=== PATIENT | male | born 2000 | race Caucasian/White ===

== ENCOUNTER 2024-05-27 16:31 | Emergency (ER) | payer SELFPAY ==
--- NOTE | 2024-05-27 16:34 | XRR_ITS ---
PROCEDURE INFORMATION: Exam: XR Right Ankle Exam date and time: 05/27/2024 4:47 PM Age: 24 years old Clinical indication: Injury or trauma; Other: Twisted ankle; Sprain or strain; Right TECHNIQUE: Imaging protocol: Radiologic exam of the right ankle. Views: 3 or more views. COMPARISON: CR XR foot RT min 3V* [id number] 05/27/2024 4:45 PM FINDINGS: Bones/joints: No acute fracture or dislocation. Smooth talar dome. No ankle mortise widening or asymmetry. Soft tissues: Normal. XR/XR ankle RT min 3V* [id number] IMPRESSION: No acute fracture or dislocation identified. Further imaging as clinically warranted if there is persistent symptoms or otherwise suspicion for occult injuries.
--- NOTE | 2024-05-27 16:34 | XRR_ITS ---
PROCEDURE INFORMATION: Exam: XR Right Foot Exam date and time: 05/27/2024 4:45 PM Age: 24 years old Clinical indication: Injury or trauma; Other: Twisted ankle; Sprain or strain; Foot; Right TECHNIQUE: Imaging protocol: Radiologic exam of the right foot. Views: 3 or more views. COMPARISON: No relevant prior studies available. FINDINGS: Bones/joints: No clear-cut acute fracture, dislocation or significant malalignment. Mild contour irregularity of the medial margin of the medial cuneiform is likely due to superimposed shadows. Soft tissues: Normal. XR/XR foot RT min 3V* [id number] IMPRESSION: Mild contour deformity of the medial cuneiform likely due to superimposition of normal anatomic contours. Correlation with point tenderness recommended. Otherwise no evidence of fracture or dislocation
[2024-05-27 16:51] VITALS: BP 146/93; PULSE 76; RESP 16; TEMP 37; O2SAT 97; BMI 36.1
--- NOTE | 2024-05-27 17:36 | ED_ITS ---
HPI - Extremity Problem General: Chief complaint: Extremity Injury, Lower Stated complaint: twisted ankle on right foot Time Seen by Provider: 05/27/24 16:52 Source: patient Mode of arrival: ambulatory Limitations: no limitations History of Present Illness: 24-year-old male states he is at work to day stepped off the curve and twisted his right ankle. He states he been able to ambulate on the ankle but it has been painful he has pain over the lateral portion rates pain a 4 out of 10 it is improved with rest denies any knee pain denies any other injuries Associated symptoms: Deny chest pain, fever(s) or rash Related Data Allergies Allergy/AdvReac Type Severity Reaction Status Date / Time No Known Allergies Allergy Verified 05/27/24 16:56 Review of Systems Const: Denies: fever(s), chills, body aches or change in appetite ENMT: Denies: throat pain or dental pain Card: Denies: chest pain Resp: Denies: dyspnea GI: Denies: abdominal pain, nausea, vomiting or diarrhea Musc: Reports: extremity pain; Denies: neck pain or back pain Skin/Breast: Denies: rash Neuro: Denies: headache(s) Physical Exam Const: COMMON NORMALS: no acute distress, patient oriented x3 and healthy appearing HENMT: COMMON NORMALS: normocephalic and atraumatic HEAD & SCALP: normocephalic and atraumatic Neck/C-Spine: COMMON NORMALS: full ROM and supple Chest: COMMONS NORMALS: normal inspection of the chest Resp: COMMON NORMALS: normal respiratory effort Cardio: COMMON NORMALS: regular rate, regular rhythm and No murmurs present (Cardio) RATE: regular rate RHYTHM: regular rhythm Extremity: COMMON NORMALS: full ROM NARRATIVE EXTREMITY EXAM: Swelling tenderness over right lateral ankle distal pulse sensation intact Neuro: COMMON NORMALS: patient oriented x3, moves all extremities and no focal motor deficits Psych: COMMON NORMALS: mental status grossly normal, Normal thought process present and cooperative THOUGHT PROCESS: Normal thought process present Skin: COMMON NORMALS: no rashes or lesions noted and no wounds GENERAL SKIN EXAM: no rashes or lesions noted Course Vital Signs: Vital signs: Vital Signs Temperature 98.6 F 05/27/24 16:51 Pulse Rate 76 05/27/24 16:51 Respiratory Rate 16 05/27/24 16:51 Blood Pressure 146/93 05/27/24 16:51 Pulse Oximetry 97 05/27/24 16:51 Oxygen Delivery Me thod Room Air 05/27/24 16:51 MDM - Extremity (Nontraumatic) Medical Decision Making Patient presents here with ankle sprain x-ray shows no fractures will Thomas wrap he is weight-bear as tolerated we will get him on crutches we will get him follow-up with podiatry he is return if worsening he understands agrees to plan. Medical Records I reviewed the patient's medical records. Lab Data Radiology Impressions Ankle X-Ray 05/27/24 16:34 IMPRESSION: No acute fracture or dislocation identified. Further imaging as clinically warranted if there is persistent symptoms or otherwise suspicion for occult injuries. Foot X-Ray 05/27/24 16:34 IMPRESSION: Mild contour deformity of the medial cuneiform likely due to superimposition of normal anatomic contours. Correlation with point tenderness recommended. Otherwise no evidence of fracture or dislocation All radiology interpretation(s) finalized by discharge Discharge Plan Discharge Patient Disposition: Home Clinical Impression: Ankle sprain and strain Condition: Stable Discharge Orders: Discharge ED (Routine); Ordered 05/27/24 Ordered By: Fanny Rivas Referrals: Andi Vallecillo DPM [Physician] - 1-3 days Discharge Diet: Advance as tolerated Discharge Activity: Increase activity as tolerated Patient Instructions: Ankle Sprain (ED) Coding Level of Care Code ED Superintendent Mechanical for Mindi Mandel
[2024-05-27] MEDS: naproxen 500 mg Tablet PO (18:00)
[2024-05-27 18:13] VITALS: BP 120/80; PULSE 52; O2SAT 99
--- NOTE | 2024-05-28 07:44 | DCPLANNER ---
messaged podiatry for er f/u
== END 2024-05-27 18:14 | disposition home or self-care (01) ==
PROVIDERS: Emergency Provider Emergency Medicine
DX: S93.401A Sprain of unspecified ligament of right ankle, initial encounter (principal); S96.911A Strain of unspecified muscle and tendon at ankle and foot level, right foot, initial encounter; X50.1XXA Overexertion from prolonged static or awkward postures, initial encounter; Y99.0 Civilian activity done for income or pay
CPT/HCPCS: 73610; 73630; 99283